=== PATIENT | male | born 1975 | race Caucasian/White ===

== ENCOUNTER 2019-05-27 10:15 | Emergency (ER) | payer OTHER, SELFPAY ==
[2019-05-27 10:15] VITALS: BP 128/88; PULSE 88; RESP 18; TEMP 36.5; O2SAT 96
--- NOTE | 2019-05-27 10:34 | ED.MALEGU ---
HPI - Male Genitourinary General Chief complaint: Urogenital-Male Stated complaint: lump on testicle Time Seen by Provider: 05/27/19 10:17 Source: patient Mode of arrival: Ambulatory Limitations: no limitations History of Present Illness HPI Narrative: Patient comes emergency department complaining of lumps on his testicles. He states he has noticed some about 3 days, though he is not sure of the been there longer. He states the 1 on the left is more prominent. He states he occasionally gets the pain seems to shoot up, but that in general, the lumps are not necessarily tender. He denies any urinary changes. No dysuria or difficulty initiating stream. No incontinence. No penile discharge. No external lesions. No inguinal masses or lymphadenopathy that he has noticed. No difficulty with bowel movements. No abdominal pain. No fevers. Patient is otherwise healthy. No other complaints at this time. He is . Related Data Home Medications Medication Instructions Recorded Confirmed levothyroxine 150 mcg PO DAILY 05/27/19 05/27/19 Allergies Allergy/AdvReac Type Severity Reaction Status Date / Time Iodinated Contrast Media AdvReac Intermediate Pt cant Verified 05/27/19 10:00 recall Review of Systems Constitutional Constitutional: Denies chills, Denies fatigue, Denies fever(s), Denies frequent falls, Denies lethargy and Denies weakness Eyes Eyes: Denies change in vision, Denies eye discharge, Denies irritation and Denies loss of vision ENT Ears, Nose, Mouth, and Throat: Denies change in voice, Denies dizziness, Denies neck pain, Denies sore throat and Denies throat swelling Cardiovascular Cardiovascular: Denies chest pain, Denies irregular heart rhythm, Denies lightheadedness, Denies palpitations, Denies dyspnea, Denies dyspnea on exertion and Denies orthopnea Respiratory Respiratory: Denies cough, Denies dyspnea, Denies dyspnea on exertion and Denies wheezing Gastrointestinal Gastrointestinal: Denies abdominal pain, Denies change in bowel habits, Denies diarrhea, Denies nausea and Denies vomiting Genitourinary Genitourinary: Denies hematuria, Denies flank pain, Denies urinary incontinence and Denies urinary urgency Comments: Testicular masses. Musculoskeletal Musculoskeletal: Denies back pain, Denies muscle weakness, Denies neck pain, Denies numbness and Denies tingling Integumentary/Breasts Skin/Breast: Denies pruritus, Denies erythema, Denies rash and Denies wounds Neurologic Neurologic: Denies behavioral changes, Denies confusion, Denies dizziness, Denies frequent falls, Denies loss of vision, Denies numbness, Denies tingling and Denies weakness Psychiatric Psychiatric: Denies anxiety, Denies behavioral changes, Denies confusion, Denies depression, Denies homicidal ideation and Denies suicidal ideation Endocrine Endocrine: Denies fatigue, Denies flushing and Denies palpitations Hematologic/Lymphatic Hematologic/Lymphatic: Denies easy bruising Allergic/Immunologic Allergic/Immunologic: Denies urticaria, Denies throat swelling and Denies wheezing Patient History Medical History Healthy adult (Acute) Social History Smoking Status: Never smoker Smoking Status: Never smoker alcohol intake frequency: 0-2 drinks per day Substance Use Type: does not use Exam Initial Vital Signs Initial Vital Signs: Vital Signs Temperature 97.7 F 05/27/19 10:15 Pulse Rate 88 05/27/19 10:15 Respiratory Rate 18 05/27/19 10:15 Blood Pressure 128/88 05/27/19 10:15 Pulse Oximetry 96 05/27/19 10:15 Const General: cooperative and well developed Nutritional Appearance: well nourished Orientation: alert, awake, oriented x3 and not confused [facility] Head: normocephalic and atraumatic Ears: external ears normal Nose: external nose normal and No nasal discharge Face and sinus: face symmetric and No dry mucous membranes Mouth: oral mucosae normal and moist mucous membranes Teeth and gingiva: dentition normal Eyes General: appearance normal, both eyes and all related structures Eyelids: eyelids normal Conjunctivae: conjunctivae normal Sclera: sclerae normal Pupils: PERRL EOM: EOM intact bilaterally Neck Neck: normal visual inspection, trachea midline, No lymphadenopathy, No midline deformity and No JVD Lymphatic: No lymphedema Chest Chest: normal inspection of the chest Resp Effort & Inspection: normal respiratory effort, able to speak in complete sentences, no respiratory distress and no use of accessory muscles Auscultation: clear to auscultation bilaterally, no rales, no rhonchi and no wheezes Cardio Rate: regular rate Rhythm: regular rhythm Heart Sounds: no click, no gallops, no murmurs and no rubs Pulses: normal peripheral pulses GI Inspection: non-distended Palpation: soft, no hepatosplenomegaly, No guarding, No pulsatile mass and No tender External: normal external exam and circumcised Penis: normal penis Meatus: meatus normal and no meatla discharge Scrotum: scrotum normal Testes: testicular mass (Soft, posterior, nontender) bilaterally Back/Spine/Pelvis Back: No CVA tenderness Cervical Spine: cervical ROM normal and No pain with cervical ROM Thoracic/Lumbar Spine: thoracic and lumbar spine normal to inspection Skin General: no rashes or lesions noted, No jaundice and No petechiae Neuro General: alert, oriented x3, gait normal and no focal motor deficits Speech: speech normal Extrem General: full ROM, no clubbing, cyanosis or edema, no pedal edema and no calf tenderness Psych Appearance: well kempt Mental Status: mental status grossly normal Attitude: cooperative Thought Content: normal and suicidality Judgment: judgment good Course Course Course Narrative: The patient was worked up with ultrasound of the scrotum, which showed hydroceles, but otherwise unremarkable. Pt was given follow-up recommendations, as well as the usual indications for return. Orders Ordered: ED Orders 05/27/19 10:33 US scrotum Stat Vital Signs Vital signs: Vital Signs - 8 hr 05/27/19 10:15 Temperature 97.7 F Pulse Rate 88 Respiratory Rate 18 Blood Pressure 128/88 Pulse Oximetry 96 MDM - Male Genitourinary Medical Records Attestation: I reviewed the patient's medical records. Imaging Data US scrotum: Radiologist's impression: PROCEDURE: US SCROTUM INDICATIONS: TESTICULAR MASS TECHNIQUE: Real-time scanning was performed of the scrotum and testicles, with image documentation. Color and pulse Doppler interrogation was performed of both testicles. COMPARISON: None. FINDINGS: Right: Testicle is normal in size at 5.2 x 2.3 x 3.0 cm, and homogenous in echotexture. Epididymis is mildly enlarged compared to the contralateral side and mildly more heterogeneous and vascular. There is a macrocalcification measuring 3 mm in the inferior portion of the right scrotum. Small simple hydrocele is present. No varicoceles. Overlying scrotal skin is normal in thickness. Left: Testicle is normal in size at 4.8 x 1.9 x 2.8 cm, and homogeneous in echotexture. Epididymis is normal in overall size and morphology. A small simple hydrocele No varicoceles. Overlying scrotal skin is normal in thickness. Doppler: Color and pulse Doppler demonstrate normal and symmetric arterial flow in both testicles. IMPRESSION: 1. Small bilateral hydroceles. 2. Slight asymmetric enlargement of the right epididymis with minimally increased vascularity. This may indicate mild early epididymitis. Correlate clinically. 3. 3 mm calcification within the right inferior scrotum (scrotal sharri). 4. No testicular mass. Dictated by: Ana Lilia Roca M.D. on 05/27/2019 at 11:58 Approved by: Ana Lilia Roca M.D. on 05/27/2019 at 12:03 Discharge Plan Departure Patient Disposition: Home Clinical Impression: Bilateral hydrocele Discharge Date/Time: 05/27/19 12:45 Instructions: DI for Hydrocele-Adult Activity Restrictions/Additional Instructions: Your ultrasound, overall, looks good. You have a small hydrocele, which is a fluid collection, on each testicle. In general, these are more chronic findings which do not generally cause any significant complications. If he began to experience a significant amount of discomfort with these, then you will need to follow up with your doctor or Urology to discuss further potential treatment. At this point in time, you may take ibuprofen and Tylenol as needed for symptomatic relief. Prescriptions: No Action levothyroxine 150 mcg Tablet 150 mcg PO DAILY RF: 0 Referrals: Eileen Triana MD [Primary Care Provider] -
[2019-05-27 12:37] VITALS: BP 129/83; PULSE 77; RESP 16; O2SAT 96
== END 2019-05-27 12:45 | disposition home or self-care (01) ==
PROVIDERS: Emergency Provider Emergency Medicine; Family Provider Family Medicine; PCP Family Medicine
DX: N43.3 Hydrocele, unspecified (principal)
CPT/HCPCS: 76870; 99282; 99284

== ENCOUNTER 2021-06-06 08:15 | Emergency (ER) | payer OTHER, SELFPAY ==
[2021-06-06 08:25] VITALS: BP 140/88; PULSE 78; RESP 18; TEMP 36.7; O2SAT 100; BMI 25.0
--- NOTE | 2021-06-06 08:49 | ED_ITS ---
HPI - URI/Sore Throat General Chief Complaint: Upper Respiratory Symptoms Stated Complaint: Obstruction in right side of throat Time Seen by Provider: 06/06/21 08:43 History of Present Illness HPI Narrative: Patient is a 46-year-old male history of throat cancer, thyroidectomy presenting today with increased difficulty swallowing. He states that the right side feels like it is constricted and that food does not quite go down as it used to. He says it is a little bit painful. He has had 2- COVID test. She denies any fever or body aches. He previously had thyroidectomy in 2006 and throat cancer as a child. He has had difficulty swallowing ever since however over the last 1 month as progressively gotten worse. He went to a walk-in clinic 4 days ago he was given some Flonase for her sinusitis instructed to go to ED if he was having further difficulties. He is able to swallow he is managing his own secretions that feels like things are getting stuck. Related Data Previous Rx's Medication Instructions Recorded cetirizine 10 mg capsule (Zyrtec) 10 mg PO DAILY PRN #30 cap 05/11/21 fluticasone propionate 50 1 spray INTRANASAL DAILY #16 g 05/11/21 mcg/actuation nasal spray,suspension (Flonase Allergy Relief) levothyroxine 150 mcg capsule 150 mcg PO QAM #30 cap 05/11/21 Allergies Allergy/AdvReac Type Severity Reaction Status Date / Time vincristine Allergy Unknown SEIZURE Unverified 05/31/21 09:19 LIKE SPASM Iodinated Contrast Media AdvReac Intermediate Pt cant Verified 05/31/21 09:19 recall Review of Systems Review of Systems Narrative: GENERAL: Denies chills, fatigue, malaise, fever, sweats, travel HEENT: See HPI RESPIRATORY: Denies dyspnea, cough, wheezing, hemoptysis, sputum. CARDIOVASCULAR: Denies chest pain, palpitations, orthopnea, edema GASTROINTESTINAL: Denies nausea, vomiting, abdominal pain, diarrhea, constipation, melena. : Denies dysuria, frequency, incontinence, hematuria, urinary retention, flank pain. MUSCULOSKELETAL: Denies weakness, joint pain, or bony pain SKIN: No rash, no erythema, no pruritus NEUROLOGIC: Denies weakness, dizziness, headache, numbness, change in speech, confusion PSYCHIATRIC: No concerning psychosocial issues. 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) Screening for HIV (human immunodeficiency virus) Thyroid nodule (~2005) Surgical History Anesthesia H/O thyroidectomy History of neck surgery (~1984) Social History Smoking Status: Never smoker Smoking Status: Never smoker alcohol intake frequency: 0-2 drinks per day Substance Use Type: does not use Exam Initial Vital Signs Initial Vital Signs: Vital Signs Temperature 98.0 F 06/06/21 08:25 Pulse Rate 78 06/06/21 08:25 Respiratory Rate 18 06/06/21 08:25 Blood Pressure 140/88 06/06/21 08:25 Pulse Oximetry 100 06/06/21 08:25 GENERAL: Thin 46 old male HEENT: Head atraumatic,EOMI, pupils reactive, face symmetric, moist mucous membranes, no cervical lymphadenopathy no masses no trachea deviation, managing secretions no stridor CARDIOVASCULAR: Regular rate and rhythm without murmurs, rubs or gallops. RESPIRATORY: Breath sounds equal bilaterally, no wheezes rales or rhonchi. ABDOMEN: Soft, nontender. Normoactive bowel sounds all 4 quadrants. No guarding or rebound. EXTREMITIES: Normal range of motion, no clubbing or edema. Neurovascularly intact NEUROLOGICAL: Alert and oriented x4. SKIN: Warm, dry, no laceration, no petechiae, no rashes or lesions. Course Orders Ordered: ED Orders 06/06/21 09:20 CBC Auto Diff [Complete Blood Count AUTO DIFF] Stat CMP [Comprehensive Metabolic Panel] Stat Discontinued Medications Diphenhydramine HCl (Diphenhydramine 50 Mg/Ml Vial) 25 mg IV NOW ONE Stop: 06/06/21 09:13 Last Admin: 06/06/21 09:51 Dose: 25 mg Documented by: JAYNE Methylprednisolone (Methylprednisolone 125 Mg/2 Ml Vial) 125 mg IV NOW ONE Stop: 06/06/21 09:13 Last Admin: 06/06/21 09:50 Dose: 125 mg Documented by: BTONER Vital Signs Vital signs: Vital Signs - 8 hr 06/06/21 11:28 Pulse Rate 75 Blood Pressure 147/92 H Pulse Oximetry 98 MDM - URI/Sore Throat Lab Data Result diagrams: 06/06/21 09:20 06/06/21 09:20 Labs: Lab Results 06/06/21 06/06/21 06/06/21 Range/Units 08:45 09:20 09:20 WBC 5.0 (4.5-11.0) X10^3/uL RBC 5.02 (4.5-5.9) X10^6/uL Hgb 14.0 (13.5-17.5) g/dL Hct 42.0 (41-53) % MCV 83.7 (80-100) fL MCH 27.8 (26-34) PG MCHC 33.2 (30-36) % RDW 13.1 (11.6-14.8) % Plt Count 288 (150-400) X10^3/uL Neut % (Auto) 66.9 (50-75) % Lymph % (Auto) 20.7 L (25-40) % Bond % (Auto) 7.9 (3-14) % Eos % (Auto) 4.1 H (2-4) % Baso % (Auto) 0.4 (0-2) % Neut # (Auto) 3300 (7710-4766) /uL Lymph # (Auto) 1000 L (4601-1828) /uL Bond # (Auto) 400 (0-900) /uL Eos # (Auto) 200 (0-450) /uL Baso # (Auto) 0 (0-100) /uL Sodium 139 (137-145) mmol/L Potassium 3.8 (3.4-5.1) mmol/L Chloride 104 (98-107) mmol/L Carbon Dioxide 29 (22-32) mmol/L BUN 12 (9-20) mg/dL Creatinine 0.88 (0.66-1.25) mg/dL Estimated GFR > 60.0 (>60) mL/min BUN/Creatinine Ratio 13.6 (6-22) Glucose 103 H (70-100) mg/dL Calcium 9.3 (8.4-10.2) mg/dL Total Bilirubin 0.7 (0.2-1.3) mg/dL AST 27 (17-59) IU/L ALT 21 (<50) IU/L Alkaline Phosphatase 76 (38-126) U/L Total Protein 7.9 (6.3-8.2) g/dL Albumin 4.8 (3.5-5.0) g/dL Globulin 3.1 (1.7-4.1) g/dL Albumin/Globulin Ratio 1.5 (1.0-2.8) SARS-CoV-2 (PCR) Negative (Negative) Point of Care Testing Rapid Strep A Negative Imaging Data CT soft tissue neck: Radiologist's Impression: PROCEDURE:? CT SOFT TISSUE NECK W CON ? INDICATIONS:? 46-year-old male with dysphagia and history of head and neck carcinoma ? TECHNIQUE:? After the administration of intravenous contrast, 3.0 mm axial sections acquired from the sella to the aortic arch.? Additional oblique axial 3.0 mm sections acquired through the pharynx.? 3 mm thick coronal and sagittal reformats were generated.? For radiation dose reduction, the following was used:? automated exposure control.? ? COMPARISON:? None. ? FINDINGS:? Image quality:? Excellent.? ? Lymph nodes:? Bilateral level 1B and IIA deep cervical nodes measure 7 mm or less in short axis. ? Vessels:? Visualized vasculature appears patent.? ? Neck spaces:? There is been a left-sided radical neck dissection including the left sternocleidomastoid and submandibular gland.? Associated overlying skin thickening may reflect prior radiation therapy.? There is associated presumed granulation tis ritesh and volume loss noted.? ? Otherwise, the oropharynx, nasopharynx, and pharynx demonstrate no mucosal lesions.? The vocal cords, false vocal cords, pyriform sinuses, epiglottis, vallecula, and tongue base all appear normal.? Extramucosal spaces appear unremarkable.? Air is noted in the esophagus. ? Glands:? As above.? The parotid and submandibular glands appear normal.? Thyroid gland unremarkable.? ? Miscellaneous:? Visualized brain and orbits appear normal.? Lung apices appear clear.? Superficial soft tissues appear normal. ? Bones:? No suspicious bony lesions.? Visualized sinuses and mastoids appear unremarkable. ?Minimal mucosal thickening along the floor both maxillary sinuses noted.? ? ? IMPRESSION:? ? 1. Air in the cervical esophagus may reflect dysfunction.? Consider follow-up es ophagram. ? 2. Left radical neck dissection includes the sternocleidomastoid and submandibular gland , and results in volume loss, presumed granulation tissue and skin thickening.? Bilateral level 1B and 2A deep cervical lymph nodes are not enlarged by size criteria.? Consider follow-up PET-CT evaluation to evaluate for activity, and or comparison to any prior exams to evaluate for interval change.? ? 3. When prior exams become available, a comparison report can be generated as an addendum ? ? ? Approved by: Mina Tsang M.D. on 06/06/2021 at 9:41? MDM Narrative Medical decision making narrative: Patient has no signs of a airway management or swallowing secretions, CT does not show any acute finding. At this time he does probably need an EGD and swallow evaluation. At this time this can be done as an outpatient. Blood work is overall reassuring no significant dehydration. His COVID test is negative. Discharge Plan Departure Patient Disposition: Home Clinical Impression: Difficulty in swallowing Instructions: Upper Gastrointestinal Series Activity Restrictions/Additional Instructions: *You have been diagnosed with difficulty swallowing *What to do: At this time you will need further outpatient studies including swallow evaluation and EGD *Continue to take medications as directed *Follow up with your primary care provider in 2-3 days or call [phone] *Return to ER if you should have inability to swallow, difficulty breathing or any new, worsening or concerning symptoms Prescriptions: No Action fluticasone propionate [Flonase Allergy Relief] 50 mcg/actuation spray,suspension 1 spray intranasal DAILY Qty: 16 2RF Rx Instructions: administer into each nostril Zyrtec 10 mg capsule 10 mg PO DAILY PRN (Reason: allergy symptoms) Qty: 30 2RF levothyroxine 150 mcg capsule 150 mcg PO QAM Qty: 30 5RF Rx Instructions: Take with full glass of water Referrals: Maryam Vines PA-C [Primary Care Provider] -
--- NOTE | 2021-06-06 09:08 | DI.CT.S_ITS ---
PROCEDURE: CT SOFT TISSUE NECK W CON INDICATIONS: 46-year-old male with dysphagia and history of head and neck carcinoma TECHNIQUE: After the administration of intravenous contrast, 3.0 mm axial sections acquired from the sella to the aortic arch. Additional oblique axial 3.0 mm sections acquired through the pharynx. 3 mm thick coronal and sagittal reformats were generated. For radiation dose reduction, the following was used: automated exposure control. COMPARISON: None. FINDINGS: Image quality: Excellent. Lymph nodes: Bilateral level 1B and IIA deep cervical nodes measure 7 mm or less in short axis. Vessels: Visualized vasculature appears patent. Neck spaces: There is been a left-sided radical neck dissection including the left sternocleidomastoid and submandibular gland. Associated overlying skin thickening may reflect prior radiation therapy. There is associated presumed granulation tissue and volume loss noted. Otherwise, the oropharynx, nasopharynx, and pharynx demonstrate no mucosal lesions. The vocal cords, false vocal cords, pyriform sinuses, epiglottis, vallecula, and tongue base all appear normal. Extramucosal spaces appear unremarkable. Air is noted in the esophagus. Glands: As above. The parotid and submandibular glands appear normal. Thyroid gland unremarkable. Miscellaneous: Visualized brain and orbits appear normal. Lung apices appear clear. Superficial soft tissues appear normal. Bones: No suspicious bony lesions. Visualized sinuses and mastoids appear unremarkable. Minimal mucosal thickening along the floor both maxillary sinuses noted. IMPRESSION: 1. Air in the cervical esophagus may reflect dysfunction. Consider follow-up esophagram. 2. Left radical neck dissection includes the sternocleidomastoid and submandibular gland , and results in volume loss, presumed granulation tissue and skin thickening. Bilateral level 1B and 2A deep cervical lymph nodes are not enlarged by size criteria. Consider follow-up PET-CT evaluation to evaluate for activity, and or comparison to any prior exams to evaluate for interval change. 3. When prior exams become available, a comparison report can be generated as an addendum Approved by: Mina Tsang M.D. on 06/06/2021 at 9:41
[2021-06-06 09:31] LABS: Add Manual Diff / Slide Review NO; Basophils Absolute Auto 0 /uL (0-100); Basophils Percent Auto 0.4 % (0-2); Eosinophils Absolute Auto 200 /uL (0-450); Eosinophils Percent Auto 4.1 % (2-4); Lymphocytes Absolute Auto 1000 /uL (1100-4500); Lymphocytes Percent Auto 20.7 % (25-40); Mean Corpuscular HGB Conc 33.2 % (30-36); Mean Corpuscular Hemoglobin 27.8 PG (26-34); Mean Corpuscular Volume 83.7 fL (80-100); Monocytes Absolute Auto 400 /uL (0-900); Monocytes Percent Auto 7.9 % (3-14); Neutrophils Absolute Auto 3300 /uL (1500-7000); Neutrophils Percent Auto 66.9 % (50-75); Platelet Count 288 X10^3/uL (150-400); Red Blood Cell Count 5.02 X10^6/uL (4.5-5.9); Red Cell Distribution Width 13.1 % (11.6-14.8)
[2021-06-06 09:40] LABS: Alanine Aminotransferase 21 IU/L (<50); Albumin 4.8 g/dL (3.5-5.0); Albumin Globulin Ratio 1.5 (1.0-2.8); Alkaline Phosphatase 76 U/L (38-126); Aspartate Aminotransferase 27 IU/L (17-59); BUN Creatinine Ratio 13.6 (6-22); Bilirubin Total 0.7 mg/dL (0.2-1.3); Blood Urea Nitrogen 12 mg/dL (9-20); Calcium 9.3 mg/dL (8.4-10.2); Carbon Dioxide 29 mmol/L (22-32); Chloride 104 mmol/L (98-107); Estimated Glomerular Filt Rate > 60.0 mL/min (>60); Globulin 3.1 g/dL (1.7-4.1); Glucose 103 mg/dL (70-100); HEMOLYSIS < 15 (0-50); Potassium 3.8 mmol/L (3.4-5.1); Sodium 139 mmol/L (137-145); Total Protein 7.9 g/dL (6.3-8.2)
[2021-06-06] MEDS: methylPREDNISolone 125 MG/2 ML VIAL IV (09:50)
[2021-06-06] MEDS: diphenhydrAMINE 50 MG/ML VIAL 25 MG IV (09:51)
[2021-06-06 11:12] LABS: COVID19 - ADMIT (NP swab/PCR) Negative (Negative)
[2021-06-06 11:28] VITALS: BP 147/92; PULSE 75; O2SAT 98
== END 2021-06-06 11:28 | disposition home or self-care (01) ==
PROVIDERS: Emergency Provider Emergency Medicine; Family Provider Family Medicine; PCP Physician Assistant
DX: R13.10 Dysphagia, unspecified (principal); Z20.822 Contact with and (suspected) exposure to COVID-19
CPT/HCPCS: 36415; 70491; 80053; 85025; 87070; 87635; 87880; 96374; 96375; 99284; C9803; J1200; J2930

== ENCOUNTER → 2022-08-22 12:06 | Outpatient (CLI) | payer OTHER, SELFPAY ==
[2022-08-22 19:37] LABS: Alanine Aminotransferase 25 IU/L (<50); Albumin 4.7 g/dL (3.5-5.0); Albumin Globulin Ratio 1.5 (1.0-2.8); Alkaline Phosphatase 90 U/L (38-126); Aspartate Aminotransferase 32 IU/L (17-59); BUN Creatinine Ratio 15.5 (6-22); Bilirubin Total 0.6 mg/dL (0.2-1.3); Blood Urea Nitrogen 13 mg/dL (9-20); Calcium 9.2 mg/dL (8.4-10.2); Carbon Dioxide 30 mmol/L (22-32); Chloride 100 mmol/L (98-107); Estimated Glomerular Filt Rate > 60 mL/min (>60); Globulin 3.1 g/dL (1.7-4.1); Glucose 81 mg/dL (70-100); HEMOLYSIS < 15 (0-50); Potassium 4.6 mmol/L (3.4-5.1); Sodium 139 mmol/L (137-145); Total Protein 7.8 g/dL (6.3-8.2)
[2022-08-22 20:02] LABS: TSH w/ Reflex to FT4 0.02 uIU/mL (0.47-4.68)
[2022-08-22 20:41] LABS: Free T4, Direct Thyroxine 2.45 ng/dL (0.78-2.19)
== END ==
PROVIDERS: Family Provider Family Medicine; PCP Physician Assistant; Visit Provider Physician Assistant
DX: E03.9 Hypothyroidism, unspecified (principal)
CPT/HCPCS: 80053; 84439; 84443

== ENCOUNTER → 2022-09-18 11:36 | Outpatient (CLI) | payer OTHER, SELFPAY ==
--- NOTE | 2022-09-18 11:38 | DI.MRI.S_ITS ---
PROCEDURE: MR HEAD/BRAIN WO/W CON INDICATIONS: 47-year-old male with fullness to head/ear x 6 yrs, intermittent vertigo, history of PNET left neck status post excision TECHNIQUE: Noncontrast axial T1 spin echo, axial T2 fast spin echo, sagittal and axial FLAIR, coronal T2 fast spin echo, axial gradient echo, axial diffusion and ADC through the brain. After the administration of contrast, axial and coronal and sagittal 3D VIBE or T1 spin echo with fat saturation through the brain. COMPARISON: None. FINDINGS: Image quality: Excellent. CSF Spaces: Basal cisterns are patent. No extra-axial fluid collections. Ventricles are normal in size and shape. Internal auditory canals: Normal 7th and 8th cranial nerve complexes noted. No abnormal enhancement. Inner ears are well-formed without enhancement. Fifth cranial nerve cisternal component unremarkable as well Brain: No intracranial masses or hemorrhage. Uribe/white matter interface is normal. Brainstem appears normal. Diffusion-weighted sequence is unremarkable without evidence of acute infarct. Normal intravascular flow voids are present. Skull and face: Calvarial marrow is normal in signal. Orbits appear normal. Sinuses: Sinuses and mastoids appear clear. IMPRESSION: Unremarkable MRI of the brain and internal auditory canals Approved by: Mina Tsang M.D. on 09/18/2022 at 13:03
== END ==
PROVIDERS: Family Provider Family Medicine; PCP Physician Assistant; Referring Provider Physician Assistant; Visit Provider Physician Assistant
DX: C71.9 Malignant neoplasm of brain, unspecified (principal); R68.89 Other general symptoms and signs; R42 Dizziness and giddiness
CPT/HCPCS: 70553; A9579

== ENCOUNTER → 2022-10-11 09:50 | Outpatient (CLI) | payer OTHER, SELFPAY ==
[2022-10-11 19:58] LABS: Add Manual Diff / Slide Review NO; Basophils Absolute Auto 0 /uL (0-100); Basophils Percent Auto 0.6 % (0-2); Eosinophils Absolute Auto 400 /uL (0-450); Eosinophils Percent Auto 8.6 % (2-4); Hematocrit 42.4 % (41-53); Hemoglobin 14.2 g/dL (13.5-17.5); Lymphocytes Absolute Auto 1300 /uL (1100-4500); Lymphocytes Percent Auto 29.2 % (25-40); Mean Corpuscular HGB Conc 33.5 % (30-36); Mean Corpuscular Volume 83.6 fL (80-100); Monocytes Absolute Auto 500 /uL (0-900); Monocytes Percent Auto 10.5 % (3-14); Neutrophils Absolute Auto 2300 /uL (1500-7000); Neutrophils Percent Auto 51.1 % (50-75); Platelet Count 239 X10^3/uL (150-400); Red Blood Cell Count 5.07 X10^6/uL (4.5-5.9); Red Cell Distribution Width 13.7 % (11.6-14.8); White Blood Cell Count 4.6 X10^3/uL (4.5-11.0)
[2022-10-11 20:19] LABS: Free T4, Direct Thyroxine 1.95 ng/dL (0.78-2.19)
[2022-10-11 20:32] LABS: BUN Creatinine Ratio 14.3 (6-22); Blood Urea Nitrogen 13 mg/dL (9-20); Calcium 9.2 mg/dL (8.4-10.2); Carbon Dioxide 26 mmol/L (22-32); Chloride 105 mmol/L (98-107); Estimated Glomerular Filt Rate > 60 mL/min (>60); Glucose 84 mg/dL (70-100); HEMOLYSIS 16 (0-50); Potassium 4.6 mmol/L (3.4-5.1); Sodium 137 mmol/L (137-145)
[2022-10-11 20:33] LABS: Thyroid Stimulating Hormone 0.022 uIU/mL (0.47-4.68)
[2022-10-11 20:39] LABS: Troponin I < 0.012 ng/mL (0.01-0.034)
== END ==
PROVIDERS: Family Provider Family Medicine; PCP Physician Assistant; Visit Provider Family Medicine
DX: R07.9 Chest pain, unspecified (principal); E03.9 Hypothyroidism, unspecified
CPT/HCPCS: 80048; 84439; 84443; 84484; 85025

== ENCOUNTER → 2023-01-29 10:07 | Outpatient (CLI) | payer OTHER, SELFPAY ==
[2023-01-29 19:58] LABS: Free T4, Direct Thyroxine 1.03 ng/dL (0.78-2.19)
[2023-01-29 20:12] LABS: Thyroid Stimulating Hormone 1.61 uIU/mL (0.47-4.68)
== END ==
PROVIDERS: Family Provider Family Medicine; PCP Physician Assistant; Visit Provider Physician Assistant
DX: E03.9 Hypothyroidism, unspecified (principal)
CPT/HCPCS: 84439; 84443

== ENCOUNTER → 2024-04-07 12:05 | Outpatient (CLI) | payer BC, SELFPAY ==
[2024-04-07 20:23] LABS: TSH w/ Reflex to FT4 1.49 uIU/mL (0.47-4.68)
== END ==
PROVIDERS: Family Provider Family Medicine; Visit Provider Family Medicine
DX: E03.9 Hypothyroidism, unspecified (principal)
CPT/HCPCS: 84443

== ENCOUNTER → 2025-04-29 10:18 | Outpatient (CLI) | payer BC, SELFPAY ==
--- NOTE | 2025-04-29 10:19 | DI.NM.S_ITS ---
PROCEDURE: NM EXERCISE TREADMILL NON NUC COMPARISON: None. INDICATIONS: chest pain FINDINGS: The patient exercised for 10 minutes and 5 seconds, reaching 109% of max predicted heart rate reached. Appropriate BP response to exercise. 12.8METs, ABNER +3%. No diagnostic ST changes, no ectopy, and no angina during the exercise and recovery. IMPRESSION: Low risk, normal treadmill ECG only from inducible ischemia standpoint. No angina during the study. Fair exercise capacity (ABNER +3%). Dictated by: Aleksandar Arriaza MD on 04/29/2025 at 14:54 Approved by: Aleksandar Arriaza MD on 04/29/2025 at 14:59
== END ==
LOC: NUCM 10:19
PROVIDERS: Referring Provider Family Medicine; Visit Provider Family Medicine
DX: R07.9 Chest pain, unspecified (principal)
CPT/HCPCS: 93017

== ENCOUNTER → 2025-05-27 09:47 | Outpatient (CLI) | payer BC, SELFPAY ==
[2025-05-27 19:27] LABS: Cholesterol 254 mg/dL (140-199); HDL Cholesterol 67 mg/dL (40-60); Triglycerides 125 mg/dL (35-150)
[2025-05-27 19:59] LABS: TSH w/ Reflex to FT4 2.16 uIU/mL (0.47-4.68)
== END ==
PROVIDERS: Visit Provider Family Medicine
DX: Z12.5 Encounter for screening for malignant neoplasm of prostate (principal); R07.9 Chest pain, unspecified; E03.9 Hypothyroidism, unspecified
CPT/HCPCS: 80061; 84443; G0103